=== PATIENT | male | born 1985 | race Caucasian/White ===

== ENCOUNTER 2021-12-20 15:09 | Emergency (ER) | payer OTHER ==
[2021-12-20] MEDS ORDERED: Cyclobenzaprine 10 MG Tab PO ONE (16:00)
[2021-12-20] MEDS ORDERED: HYDROmorphone 1 MG/ML Syringe IM ONE (16:00)
[2021-12-20] MEDS ORDERED: Ketorolac 60 MG/2 ML SDV IM ONE (16:00)
== END 2021-12-20 17:40 | disposition home or self-care (01) ==
LOC: JD.ED 15:09
DX: M54.42 Lumbago with sciatica, left side (principal); F17.210 Nicotine dependence, cigarettes, uncomplicated
CPT/HCPCS: 72100; 96372; 99283; A9270; J1170; J1885

== ENCOUNTER 2022-08-05 13:16 | Emergency (ER) | payer SELFPAY ==
[2022-08-05] MEDS ORDERED: Ondansetron 4 MG/2 ML SDV IVPUSH ONE (13:37)
[2022-08-05] MEDS ORDERED: Sodium Chloride 0.9% 10 ML Syringe FLUSH PRN (13:37)
[2022-08-05] MEDS ORDERED: HYDROmorphone 1 MG/ML Syringe IVPUSH ONE ×2 (13:38→17:01)
[2022-08-05] MEDS ORDERED: Ketorolac 30 MG/ML SDV IVPUSH ONE (13:38)
[2022-08-05] MEDS ORDERED: Sodium Chloride 0.9% 1,000 ML IV SCH (13:45)
[2022-08-05] MEDS ORDERED: HYDROmorphone 0.5 MG/0.5 ML Syringe IVPUSH ONE (14:08)
[2022-08-05 14:11] LABS: BASOPHILS ABSOLUTE AUTO 0.05 K/mm3 (0.01-0.08); BASOPHILS PERCENT AUTO 0.2 % (0.1-1.2); EOSINOPHILS ABSOLUTE AUTO 0.01 K/mm3 (0.04-0.54); EOSINOPHILS PERCENT AUTO 0 (0.8-7.0); HEMATOCRIT 56.8 % (40.1-51.0); HEMOGLOBIN 20.1 gm/dl (13.7-17.5); IMMATURE GRAN ABSOLUTE AUTO 0.13 K/mm3 (0.00-0.10); IMMATURE GRAN PERCENT AUTO 0.5 % (<=1.0); LYMPHOCYTES ABSOLUTE AUTO 0.92 K/mm3 (1.32-3.57); LYMPHOCYTES PERCENT AUTO 3.4 % (21.8-53.1); MEAN CORPUSCULAR HEMOGLOBIN 29.2 pg (25.7-32.2); MEAN CORPUSCULAR HGB CONC 35.4 g/dl (32.2-35.5); MEAN CORPUSCULAR VOLUME 82.6 fl (79.0-92.2); MEAN PLATELET VOLUME 10.5 fl (9.4-12.3); MONOCYTES ABSOLUTE AUTO 0.75 K/mm3 (0.30-0.82); MONOCYTES PERCENT AUTO 2.8 % (5.3-12.2); NEUTROPHILS ABSOLUTE AUTO 25.08 K/mm3 (1.78-5.38); NEUTROPHILS PERCENT AUTO 93.1 % (34.0-67.9); PLATELET COUNT,PLT 353 K/mm3 (163-337); RED BLOOD CELL COUNT 6.88 M/mm3 (4.63-6.08); WHITE BLOOD CELL COUNT,WBC 26.94 K/mm3 (4.23-9.07)
[2022-08-05 14:35] LABS: A/G RATIO 1.4 (1-2); ALANINE AMINOTRANSFERASE,ALT 59 U/L (16-63); ALBUMIN 5.1 g/dl (3.4-5.0); ALKALINE PHOSPHATASE 124 U/L (46-116); ASPARTATE AMNIOTRANSFERASE,AST 32 U/L (15-37); BILIRUBIN TOTAL 0.8 mg/dL (0.2-1.0); BLOOD UREA NITROGEN,BUN 31 mg/dL (7-18); BUN/CREATININE RATIO 17.2 (14-18); CALCIUM 10.6 mg/dL (8.5-10.1); CARBON DIOXIDE,CO2 19 mEq/L (21-32); CHLORIDE,CL 103 mEq/L (98-107); CREATININE 1.8 mg/dL (0.7-1.3); ESTIMATED GFR 50 mL/min (>60); GLUCOSE RANDOM 106 mg/dL (70-99); LIPASE 133 U/L (73-393); PROTEIN TOTAL,TP 8.8 g/dl (6.4-8.2); SODIUM,NA 137 mEq/L (136-145)
[2022-08-05 14:36] LABS: APPEARANCE,URINE CLEAR (Clear); BILIRUBIN,URINE 1+ (Negative); COLOR,URINE YELLOW (Yellow); GLUCOSE,URINE NEGATIVE (Negative); KETONES,URINE 3+ (Negative); LEUKOCYTE ESTERASE,URINE NEGATIVE (Negative); NITRITE,URINE NEGATIVE (Negative); OCCULT BLOOD,URINE 1+ (Negative); PH,URINE 5.5 (5.0-8.0); PROTEIN,URINE 3+ (Negative); UROBILINOGEN,URINE 0.2 (0.2-1.0)
[2022-08-05 14:48] LABS: BACTERIA,URINE FEW /hpf (FEW); FINE GRANULAR CASTS,URINE 0-5 /lpf (0-5); MUCUS,URINE MANY /hpf (FEW); RBC,URINE 0-5 /hpf (0-5); SQUAMOUS EPITHELIAL CELLS,UR 0-5 /hpf (0-5); WBC,URINE 0-5 /hpf (0-5)
[2022-08-05 14:54] LABS: SLIDE REVIEW ABNORMAL SMEAR
[2022-08-05 16:23] LABS: BASOPHILS ABSOLUTE AUTO 0.04 K/mm3 (0.01-0.08); BASOPHILS PERCENT AUTO 0.2 % (0.1-1.2); EOSINOPHILS PERCENT AUTO 0 (0.8-7.0); HEMOGLOBIN 19.7 gm/dl (13.7-17.5); IMMATURE GRAN PERCENT AUTO 0.4 % (<=1.0); LYMPHOCYTES ABSOLUTE AUTO 0.99 K/mm3 (1.32-3.57); LYMPHOCYTES PERCENT AUTO 3.9 % (21.8-53.1); MEAN CORPUSCULAR HGB CONC 34.6 g/dl (32.2-35.5); MEAN CORPUSCULAR VOLUME 83.9 fl (79.0-92.2); MEAN PLATELET VOLUME 10.3 fl (9.4-12.3); MONOCYTES ABSOLUTE AUTO 0.85 K/mm3 (0.30-0.82); MONOCYTES PERCENT AUTO 3.3 % (5.3-12.2); NEUTROPHILS ABSOLUTE AUTO 23.49 K/mm3 (1.78-5.38); NEUTROPHILS PERCENT AUTO 92.2 % (34.0-67.9); PLATELET COUNT,PLT 331 K/mm3 (163-337); RED BLOOD CELL COUNT 6.79 M/mm3 (4.63-6.08); WHITE BLOOD CELL COUNT,WBC 25.47 K/mm3 (4.23-9.07)
[2022-08-05 17:20] LABS: SLIDE REVIEW ABNORMAL SMEAR
== END 2022-08-05 19:07 | disposition home or self-care (01) ==
LOC: JD.ED 13:16
DX: R10.9 Unspecified abdominal pain (principal); E86.0 Dehydration; M54.50 Low back pain, unspecified; D72.829 Elevated white blood cell count, unspecified; I10 Essential (primary) hypertension; F17.210 Nicotine dependence, cigarettes, uncomplicated
CPT/HCPCS: 36415; 74176; 80053; 81001; 83690; 85025; 87040; 96361; 96374; 96375; 96376; 99284; J1170; J1885; J2405; J7030

== ENCOUNTER 2022-10-28 18:52 | Day surgery (SDC) | payer BC, MEDICAID ==
[2022-10-28] MEDS ORDERED: Aluminum Hydroxide/Magnesium Hydroxide/Simethicone Susp 30 ML Cup PO ONE (20:02)
[2022-10-28] MEDS ORDERED: HYDROmorphone 1 MG/ML Syringe IVPUSH ONE ×3 (20:02→21:11)
[2022-10-28] MEDS ORDERED: Metoclopramide 10 MG/2 ML SDV IVPUSH ONE (20:02)
[2022-10-28] MEDS ORDERED: Pantoprazole 40 MG Vial IVPUSH ONE (20:08)
[2022-10-28] MEDS ORDERED: Dextrose 5%-Lactated Ringers 1,000 ML IV SCH (20:15)
[2022-10-28 20:19] LABS: BASOPHILS ABSOLUTE AUTO 0.2 K/mm3 (0.0-0.2); EOSINOPHILS ABSOLUTE AUTO 0.1 K/mm3 (0.0-0.4); EOSINOPHILS PERCENT AUTO 0.8 % (0.0-6.0); IMMATURE GRAN ABSOLUTE AUTO 0.12 K/mm3 (0.00-0.05); IMMATURE GRAN PERCENT AUTO 0.7 % (0.0-0.4); LYMPHOCYTES ABSOLUTE AUTO 1.8 K/mm3 (1.0-4.8); LYMPHOCYTES PERCENT AUTO 10.4 % (24.0-44.0); MEAN CORPUSCULAR HEMOGLOBIN 30.7 pg (28.0-32.0); MEAN CORPUSCULAR HGB CONC 34.5 g/dl (32.0-36.0); MEAN CORPUSCULAR VOLUME 89.1 fl (83.0-99.0); MEAN PLATELET VOLUME 10.8 fl (9.4-12.4); MONOCYTES ABSOLUTE AUTO 1.1 K/mm3 (0.0-0.8); NEUTROPHILS ABSOLUTE AUTO 14.2 K/mm3 (1.8-7.7); NEUTROPHILS PERCENT AUTO 81.1 % (41.0-71.0); PLATELET COUNT,PLT 381 K/mm3 (150-400); RED BLOOD CELL COUNT 6.51 M/mm3 (4.52-5.90); WHITE BLOOD CELL COUNT,WBC 17.53 K/mm3 (3.9-11.3)
[2022-10-28 20:25] LABS: INR 1.14; PROTHROMBIN TIME 12.1 SECONDS (9.7-12.0)
[2022-10-28 20:27] LABS: PTT,PARTIAL THROMBOPLSTIN TIME 28.1 SECONDS (21.7-31.4)
[2022-10-28 20:29] LABS: A/G RATIO 1.3 (1-2); ALANINE AMINOTRANSFERASE,ALT 55 U/L (16-63); ALBUMIN 4.4 g/dl (3.4-5.0); ALKALINE PHOSPHATASE 71 U/L (46-116); ANION GAP 18.2 (5-15); ASPARTATE AMNIOTRANSFERASE,AST 38 U/L (15-37); BILIRUBIN TOTAL 1.1 mg/dL (0.2-1.0); BLOOD UREA NITROGEN,BUN 20 mg/dL (7-18); BUN/CREATININE RATIO 13.3 (14-18); C-REACTIVE PROTEIN <0.2 mg/dL (<1.0); CARBON DIOXIDE,CO2 21 mEq/L (21-32); CHLORIDE,CL 103 mEq/L (98-107); CREATININE 1.5 mg/dL (0.7-1.3); EST CRCL DRUG DOSING (CG) 78.42 mL/min; ESTIMATED GFR 62 mL/min (>60); GLUCOSE RANDOM 88 mg/dL (70-99); LIPASE 106 U/L (73-393); MAGNESIUM 1.8 mg/dL (1.8-2.4); POTASSIUM,K 5.2 mEq/L (3.5-5.1); PROTEIN TOTAL,TP 7.9 g/dl (6.4-8.2); SODIUM,NA 137 mEq/L (136-145)
[2022-10-28] MEDS ORDERED: HYDROmorphone 1 MG/ML Syringe ONE (21:09)
[2022-10-28] MEDS ORDERED: Iopamidol 612 MG/ML 100 ML Bottle IVPUSH ONE (21:31)
[2022-10-28] MEDS ORDERED: Ibuprofen 600 MG Tab PO ONE (23:50)
[2022-10-28] MEDS ORDERED: HYDROmorphone 0.5 MG/0.5 ML Syringe IVPUSH ONE (23:54)
[2022-10-28] MEDS ORDERED: LORazepam 2 MG/ML SDV IVPUSH ONE (23:55)
[2022-10-29] MEDS: Sodium Chloride 0.9% 1,000 ML IV SCH ×2 (01:00→08:25)
[2022-10-29] MEDS ORDERED: Polyethylene Glycol 3350 Powder 17 GM Packet PO ONE (03:00)
[2022-10-29] MEDS ORDERED: LORazepam 2 MG/ML SDV IVPUSH ONE (03:18)
[2022-10-29] MEDS ORDERED: HYDROmorphone 1 MG/ML Syringe IVPUSH ONE (03:18)
[2022-10-29] MEDS ORDERED: Polyethylene Glycol 3350 Powder 17 GM Packet ONE (03:18)
[2022-10-29] MEDS ORDERED: Metoclopramide 10 MG/2 ML SDV IVPUSH ONE (03:19)
[2022-10-29] MEDS ORDERED: Dextrose 5%-Lactated Ringers 1,000 ML IV SCH (03:30)
[2022-10-29 06:11] LABS: BASOPHILS ABSOLUTE AUTO 0.1 K/mm3 (0.0-0.2); BASOPHILS PERCENT AUTO 0.9 % (0.0-1.0); EOSINOPHILS ABSOLUTE AUTO 0.2 K/mm3 (0.0-0.4); EOSINOPHILS PERCENT AUTO 1.9 % (0.0-6.0); HEMATOCRIT 54.1 % (42.0-52.0); IMMATURE GRAN ABSOLUTE AUTO 0.08 K/mm3 (0.00-0.05); IMMATURE GRAN PERCENT AUTO 0.6 % (0.0-0.4); LYMPHOCYTES ABSOLUTE AUTO 2.2 K/mm3 (1.0-4.8); LYMPHOCYTES PERCENT AUTO 17.2 % (24.0-44.0); MEAN CORPUSCULAR HEMOGLOBIN 30.3 pg (28.0-32.0); MEAN CORPUSCULAR HGB CONC 33.3 g/dl (32.0-36.0); MEAN CORPUSCULAR VOLUME 90.9 fl (83.0-99.0); MEAN PLATELET VOLUME 9.8 fl (9.4-12.4); NEUTROPHILS ABSOLUTE AUTO 9.2 K/mm3 (1.8-7.7); NEUTROPHILS PERCENT AUTO 71.4 % (41.0-71.0); PLATELET COUNT,PLT 298 K/mm3 (150-400); RED BLOOD CELL COUNT 5.95 M/mm3 (4.52-5.90); WHITE BLOOD CELL COUNT,WBC 12.92 K/mm3 (3.9-11.3)
[2022-10-29 06:32] LABS: A/G RATIO 1.2 (1-2); ALANINE AMINOTRANSFERASE,ALT 59 U/L (16-63); ALBUMIN 3.6 g/dl (3.4-5.0); ALKALINE PHOSPHATASE 59 U/L (46-116); ANION GAP 10.3 (5-15); ASPARTATE AMNIOTRANSFERASE,AST 38 U/L (15-37); BILIRUBIN TOTAL 1.1 mg/dL (0.2-1.0); BLOOD UREA NITROGEN,BUN 16 mg/dL (7-18); BUN/CREATININE RATIO 10.7 (14-18); C-REACTIVE PROTEIN <0.2 mg/dL (<1.0); CARBON DIOXIDE,CO2 28 mEq/L (21-32); CHLORIDE,CL 101 mEq/L (98-107); CREATININE 1.5 mg/dL (0.7-1.3); EST CRCL DRUG DOSING (CG) 78.42 mL/min; ESTIMATED GFR 62 mL/min (>60); GLUCOSE RANDOM 73 mg/dL (70-99); LIPASE 324 U/L (73-393); POTASSIUM,K 4.3 mEq/L (3.5-5.1); PROTEIN TOTAL,TP 6.6 g/dl (6.4-8.2); SODIUM,NA 135 mEq/L (136-145)
[2022-10-29 07:05] LABS: CALCIUM 8.7 mg/dL (8.5-10.1)
[2022-10-29] MEDS ORDERED: HYDROmorphone 0.5 MG/0.5 ML Syringe IVPUSH ONE ×3 (07:28→12:29)
[2022-10-29] MEDS ORDERED: Benzocaine 20% Topical Spray UD ONE (13:09)
[2022-10-29] MEDS ORDERED: Propofol 200 MG/20 ML SDV ONE ×2 (13:09→13:45)
[2022-10-29] MEDS ORDERED: Lidocaine 2% 100 MG/5 ML Syringe ONE (13:09)
[2022-10-29] MEDS ORDERED: Midazolam 1 MG/ML 2 ML SDV ONE (13:12)
[2022-10-29] MEDS ORDERED: fentaNYL 100 MCG/2 ML SDV ONE (13:13)
[2022-10-29] MEDS ORDERED: Labetalol 100 MG/20 ML MDV ONE (13:43)
== END 2022-10-29 | disposition home or self-care (01) ==
LOC: JD.ED 18:52 → JD.SDS 10-29 10:50 → JD.OB 10-29 11:06 → JD.SDS 10-29 11:06
PROVIDERS: ATTEND Specialist
DX: D13.1 Benign neoplasm of stomach (principal); I10 Essential (primary) hypertension; K21.9 Gastro-esophageal reflux disease without esophagitis; F32.A Depression, unspecified; Z79.899 Other long term (current) drug therapy
CPT/HCPCS: 36415; 43239; 71045; 74177; 80053; 82009; 83605; 83690; 83735; 85025; 85610; 85730; 86140; 96361; 96374; 96375; 96376; 99285; A9270; C9113; J1170; J2060; J2250; J2704; J2765; J3010; J3490; J7030; J7121; Q9967; 99284

== ENCOUNTER 2023-03-24 10:27 | Emergency (ER) | payer BC ==
[2023-03-24] MEDS ORDERED: Sodium Chloride 0.9% 10 ML Syringe FLUSH PRN (10:32)
[2023-03-24] MEDS ORDERED: Ketorolac 30 MG/ML SDV IVPUSH ONE ×2 (10:33→17:42)
[2023-03-24] MEDS ORDERED: Sodium Chloride 0.9% 1,000 ML IV SCH (10:45)
[2023-03-24 10:56] LABS: BASOPHILS ABSOLUTE AUTO 0.1 K/mm3 (0.0-0.2); BASOPHILS PERCENT AUTO 0.3 % (0.0-1.0); EOSINOPHILS ABSOLUTE AUTO 0.4 K/mm3 (0.0-0.4); EOSINOPHILS PERCENT AUTO 1.7 % (0.0-6.0); HEMATOCRIT 52.7 % (42.0-52.0); IMMATURE GRAN ABSOLUTE AUTO 0.15 K/mm3 (0.00-0.05); IMMATURE GRAN PERCENT AUTO 0.7 % (0.0-0.4); LYMPHOCYTES ABSOLUTE AUTO 1.4 K/mm3 (1.0-4.8); LYMPHOCYTES PERCENT AUTO 6.3 % (24.0-44.0); MEAN CORPUSCULAR HEMOGLOBIN 28.8 pg (28.0-32.0); MEAN CORPUSCULAR HGB CONC 32.8 g/dl (32.0-36.0); MEAN CORPUSCULAR VOLUME 87.7 fl (83.0-99.0); MEAN PLATELET VOLUME 9.8 fl (9.4-12.4); MONOCYTES ABSOLUTE AUTO 1.3 K/mm3 (0.0-0.8); NEUTROPHILS ABSOLUTE AUTO 18.5 K/mm3 (1.8-7.7); PLATELET COUNT,PLT 390 K/mm3 (150-400); RED BLOOD CELL COUNT 6.01 M/mm3 (4.52-5.90); WHITE BLOOD CELL COUNT,WBC 21.75 K/mm3 (3.9-11.3)
[2023-03-24 11:00] LABS: HEMOGLOBIN 17.3 gm/dl (14.0-18.0)
[2023-03-24 11:16] LABS: SLIDE REVIEW ABNORMAL SMEAR
[2023-03-24 11:25] LABS: A/G RATIO 1.1 (1-2); ALBUMIN 4.2 g/dl (3.4-5.0); ANION GAP 19.6 (5-15); BILIRUBIN TOTAL 1.3 mg/dL (0.2-1.0); BUN/CREATININE RATIO 8.4 (14-18); CALCIUM 9.9 mg/dL (8.5-10.1); CREATININE 1.9 mg/dL (0.7-1.3); EST CRCL DRUG DOSING (CG) 61.33 mL/min; POTASSIUM,K 4.6 mEq/L (3.5-5.1); PROTEIN TOTAL,TP 7.9 g/dl (6.4-8.2)
[2023-03-24] MEDS ORDERED: fentaNYL 100 MCG/2 ML SDV IVPUSH ONE (12:37)
[2023-03-24 12:46] LABS: APPEARANCE,URINE SLT CLOUDY (Clear); BILIRUBIN,URINE 2+ (Negative); COLOR,URINE DARK YELLOW (Yellow); GLUCOSE,URINE NEGATIVE (Negative); KETONES,URINE 2+ (Negative); LEUKOCYTE ESTERASE,URINE NEGATIVE (Negative); NITRITE,URINE NEGATIVE (Negative); OCCULT BLOOD,URINE 2+ (Negative); PH,URINE 5.5 (5.0-8.0); PROTEIN,URINE 3+ (Negative); UROBILINOGEN,URINE 0.2 (0.2-1.0)
[2023-03-24 12:53] LABS: EPITHELIAL CELLS,URINE 0-5 /hpf (0-5)
[2023-03-24 12:54] LABS: BACTERIA,URINE MODERATE /hpf (FEW); MUCUS,URINE MANY /hpf (FEW)
[2023-03-24] MEDS ORDERED: Sodium Chloride 0.9% 1,000 ML IV ONE (14:52)
[2023-03-24] MEDS ORDERED: HYDROmorphone 0.5 MG/0.5 ML Syringe IVPUSH ONE ×2 (14:57→18:53)
[2023-03-24 15:41] LABS: BASOPHILS ABSOLUTE AUTO 0.1 K/mm3 (0.0-0.2); BASOPHILS PERCENT AUTO 0.3 % (0.0-1.0); EOSINOPHILS ABSOLUTE AUTO 0.3 K/mm3 (0.0-0.4); EOSINOPHILS PERCENT AUTO 1.5 % (0.0-6.0); HEMATOCRIT 49.1 % (42.0-52.0); HEMOGLOBIN 16.1 gm/dl (14.0-18.0); IMMATURE GRAN ABSOLUTE AUTO 0.15 K/mm3 (0.00-0.05); IMMATURE GRAN PERCENT AUTO 0.7 % (0.0-0.4); LYMPHOCYTES ABSOLUTE AUTO 1.4 K/mm3 (1.0-4.8); LYMPHOCYTES PERCENT AUTO 6.5 % (24.0-44.0); MEAN CORPUSCULAR HEMOGLOBIN 29.2 pg (28.0-32.0); MEAN CORPUSCULAR HGB CONC 32.8 g/dl (32.0-36.0); MEAN CORPUSCULAR VOLUME 88.9 fl (83.0-99.0); MEAN PLATELET VOLUME 10.1 fl (9.4-12.4); MONOCYTES ABSOLUTE AUTO 1.4 K/mm3 (0.0-0.8); MONOCYTES PERCENT AUTO 6.1 % (0.0-8.0); NEUTROPHILS ABSOLUTE AUTO 18.9 K/mm3 (1.8-7.7); NEUTROPHILS PERCENT AUTO 84.9 % (41.0-71.0); PLATELET COUNT,PLT 379 K/mm3 (150-400); RED BLOOD CELL COUNT 5.52 M/mm3 (4.52-5.90)
[2023-03-24] MEDS ORDERED: Haloperidol Lactate 5 MG/ML SDV IVPUSH ONE (16:23)
[2023-03-24 16:52] LABS: BARBITURATE SCREEN,URINE NEGATIVE (CUTOFF=200); BENZODIAZEPINES SCREEN,URINE NEGATIVE (CUTOFF=150); BUPRENORPHINE SCREEN,URINE NEGATIVE (CUTOFF=10); METHADONE SCREEN, URINE NEGATIVE (CUT0FF=200); METHAMPHETAMINES SCREEN, URINE NEGATIVE (CUTOFF=500); OXYCODONE SCREEN,URINE NEGATIVE (CUT0FF=100); THC SCREEN,URINE 20 NG/ML PRESUMPTIVE POSITIVE (CUTOFF=50)
[2023-03-24 17:00] LABS: AMPHETAMINES SCREEN, URINE NEGATIVE (CUTOFF=500)
[2023-03-24] MEDS ORDERED: Iopamidol 612 MG/ML 100 ML Bottle IVPUSH ONE (17:25)
[2023-03-24] MEDS ORDERED: Sodium Chloride 0.9% 10 ML Syringe FLUSH ONE (17:25)
[2023-03-24 18:48] LABS: LACTIC ACID 1.1 mmol/L (0.4-2.0)
[2023-03-24] MEDS ORDERED: Ondansetron 4 MG/2 ML SDV IVPUSH ONE (18:53)
== END 2023-03-24 19:30 | disposition home or self-care (01) ==
LOC: JD.ED 10:27
DX: R10.13 Epigastric pain (principal); R11.2 Nausea with vomiting, unspecified; I10 Essential (primary) hypertension; Z79.899 Other long term (current) drug therapy
CPT/HCPCS: 36415; 74176; 74177; 80053; 80306; 81001; 83605; 83690; 85025; 86140; 87040; 87045; 87046; 87493; 87899; 96361; 96374; 96375; 96376; 99285; J1170; J1630; J1885; J2405; J3010; J3490; J7030; Q9967; 99284

== ENCOUNTER 2023-03-27 19:37 | Inpatient (IN) | payer BC ==
[2023-03-27] MEDS ORDERED: Ketorolac 15 MG/ML SDV IVPUSH ONE (20:01)
[2023-03-27] MEDS ORDERED: Acetaminophen 325 MG Tab PO ONE (20:01)
[2023-03-27] MEDS ORDERED: Sodium Chloride 0.9% 1,000 ML IV ONE ×2 (20:02→21:37)
[2023-03-27 20:15] LABS: BASOPHILS ABSOLUTE AUTO 0.2 K/mm3 (0.0-0.2); BASOPHILS PERCENT AUTO 0.6 % (0.0-1.0); EOSINOPHILS ABSOLUTE AUTO 0.1 K/mm3 (0.0-0.4); EOSINOPHILS PERCENT AUTO 0.3 % (0.0-6.0); HEMATOCRIT 52.8 % (42.0-52.0); IMMATURE GRAN ABSOLUTE AUTO 0.55 K/mm3 (0.00-0.05); IMMATURE GRAN PERCENT AUTO 1.5 % (0.0-0.4); LYMPHOCYTES ABSOLUTE AUTO 1.9 K/mm3 (1.0-4.8); MEAN CORPUSCULAR HEMOGLOBIN 29.9 pg (28.0-32.0); MEAN CORPUSCULAR HGB CONC 34.5 g/dl (32.0-36.0); MEAN CORPUSCULAR VOLUME 86.7 fl (83.0-99.0); MEAN PLATELET VOLUME 11.1 fl (9.4-12.4); MONOCYTES PERCENT AUTO 5.2 % (0.0-8.0); NEUTROPHILS PERCENT AUTO 87.4 % (41.0-71.0); PLATELET COUNT,PLT 397 K/mm3 (150-400); RED BLOOD CELL COUNT 6.09 M/mm3 (4.52-5.90); WHITE BLOOD CELL COUNT,WBC 37.68 K/mm3 (3.9-11.3)
[2023-03-27 20:28] LABS: HEMOGLOBIN 18.2 gm/dl (14.0-18.0)
[2023-03-27 21:04] LABS: A/G RATIO 1.2 (1-2); ALANINE AMINOTRANSFERASE,ALT 68 U/L (16-63); ALBUMIN 4.4 g/dl (3.4-5.0); ALKALINE PHOSPHATASE 78 U/L (46-116); ANION GAP 22.4 (5-15); ASPARTATE AMNIOTRANSFERASE,AST 38 U/L (15-37); BILIRUBIN TOTAL 0.8 mg/dL (0.2-1.0); BLOOD UREA NITROGEN,BUN 22 mg/dL (7-18); BUN/CREATININE RATIO 11.6 (14-18); CALCIUM 11.3 mg/dL (8.5-10.1); CARBON DIOXIDE,CO2 17 mEq/L (21-32); CHLORIDE,CL 101 mEq/L (98-107); CREATININE 1.9 mg/dL (0.7-1.3); ESTIMATED GFR 47 mL/min (>60); GLUCOSE RANDOM 123 mg/dL (70-99); POTASSIUM,K 5.4 mEq/L (3.5-5.1); PROTEIN TOTAL,TP 8.2 g/dl (6.4-8.2); SODIUM,NA 135 mEq/L (136-145)
[2023-03-27 21:07] LABS: SLIDE REVIEW ABNORMAL SMEAR
[2023-03-27] MEDS ORDERED: Morphine 4 MG/ML Syringe IVPUSH ONE (21:31)
[2023-03-27] MEDS ORDERED: Lactated Ringers 1,000 ML IV ONE ×2 (21:33→21:34)
[2023-03-27] MEDS ORDERED: cefTRIAXone 2 GM in Sodium Chloride 0.9% 100 ML IV ONE (21:36)
[2023-03-27] MEDS ORDERED: Lactated Ringers 1,000 ML ONE (21:43)
[2023-03-27 22:20] LABS: CHOLESTEROL HDL 13 mg/dL (40-59); CHOLESTEROL LDL DIRECT 184 mg/dL (<100); CHOLESTEROL TOTAL 240 mg/dL (<200); LIPASE 38 U/L (16-77); TRIGLYCERIDES 271 mg/dL (<150)
[2023-03-27] MEDS ORDERED: HYDROmorphone 1 MG/ML Syringe IVPUSH ONE ×2 (22:20→23:49)
[2023-03-27] MEDS ORDERED: Famotidine 20 MG/2 ML SDV IVPUSH ONE (22:20)
[2023-03-27] MEDS ORDERED: Pantoprazole 40 MG Vial IVPUSH ONE (22:20)
[2023-03-27 22:25] LABS: LACTIC ACID 1.1 mmol/L (0.4-2.0)
[2023-03-27] MEDS ORDERED: Dicyclomine 10 MG Cap PO ONE (23:49)
[2023-03-28] MEDS ORDERED: Sodium Chloride 0.9% 1,000 ML IV ONE (00:01)
[2023-03-28] MEDS ORDERED: Haloperidol Lactate 5 MG/ML SDV IVPUSH ONE (01:20)
[2023-03-28 01:22] LABS: APPEARANCE,URINE CLEAR (Clear); BILIRUBIN,URINE 3+ (Negative); COLOR,URINE DARK YELLOW (Yellow); GLUCOSE,URINE NEGATIVE (Negative); KETONES,URINE TRACE (Negative); LEUKOCYTE ESTERASE,URINE NEGATIVE (Negative); NITRITE,URINE POSITIVE (Negative); OCCULT BLOOD,URINE 2+ (Negative); PROTEIN,URINE 3+ (Negative)
[2023-03-28 01:51] LABS: EPITHELIAL CELLS,URINE 0-5 /hpf (0-5); RBC,URINE 0-5 /hpf (0-5); WBC,URINE 0-5 /hpf (0-5)
[2023-03-28 01:52] LABS: AMORPHOUS SEDIMENT,URINE FEW /hpf (NOT SEEN); BACTERIA,URINE MODERATE /hpf (FEW); HYALINE CASTS,URINE 0-5 /lpf (0-5); MUCUS,URINE FEW /hpf (FEW)
[2023-03-28] MEDS ORDERED: HYDROmorphone 1 MG/ML Syringe IVPUSH ONE ×4 (02:48→20:02)
[2023-03-28 03:22] LABS: ANION GAP 20.5 (5-15); BUN/CREATININE RATIO 16.3 (14-18); CALCIUM 9.6 mg/dL (8.5-10.1); CREATININE 1.6 mg/dL (0.7-1.3); EST CRCL DRUG DOSING (CG) 72.83 mL/min
[2023-03-28] MEDS ORDERED: Sodium Chloride 0.9% 1,000 ML IV SCH (03:30)
[2023-03-28 03:32] LABS: POTASSIUM,K 6.5 mEq/L (3.5-5.1)
[2023-03-28] MEDS ORDERED: Insulin Regular, Human 100 Units/ML 3 ML Vial IV ONE (03:34)
[2023-03-28] MEDS ORDERED: 50% Dextrose in Water 50 ML Syringe IVPUSH ONE (03:36)
[2023-03-28] MEDS ORDERED: Albuterol 0.083% 2.5 MG/3 ML Neb Soln NEB ONE (03:37)
[2023-03-28] MEDS ORDERED: Calcium Gluconate 10% 1 GM/10 ML SDV IVPUSH ONE (03:40)
[2023-03-28] MEDS: Lactated Ringers 1,000 ML IV SCH ×2 (03:40→12:14)
[2023-03-28 04:04] LABS: BASE EXCESS VENOUS -7.9 (-4.0-2.0); BICARBONATE,VENOUS 16.9 meq/L (22-26); O2 SATURATION VENOUS 98.2; PH,VENOUS 7.32 (7.30-7.40)
[2023-03-28] MEDS: Meropenem 1 GM in Sodium Chloride 0.9% 100 ML IV SCH ×3 (04:13→19:52)
[2023-03-28] MEDS: HYDROmorphone 1 MG/ML Syringe IVPUSH PRN ×3 (04:48→08:54)
[2023-03-28] MEDS ORDERED: Ondansetron 4 MG/2 ML SDV IVPUSH ONE (06:36)
[2023-03-28 06:55] LABS: ANION GAP 16.3 (5-15); BUN/CREATININE RATIO 15.6 (14-18); CALCIUM 9.6 mg/dL (8.5-10.1); CREATININE 1.6 mg/dL (0.7-1.3); EST CRCL DRUG DOSING (CG) 72.83 mL/min; POTASSIUM,K 5.3 mEq/L (3.5-5.1)
[2023-03-28] MEDS ORDERED: Acetaminophen 325 MG Tab PO PRN (09:01)
[2023-03-28] MEDS ORDERED: Acetaminophen/HYDROcodone 325-10 MG Tab PO PRN (09:01)
[2023-03-28] MEDS ORDERED: Morphine 2 MG/ML SYRINGE IVPUSH PRN ×2 (09:01→10:09)
[2023-03-28] MEDS ORDERED: Labetalol 100 MG/20 ML MDV IVPUSH PRN ×2 (09:06→11:44)
[2023-03-28] MEDS ORDERED: Morphine 10 MG/ML SDV IVPUSH ONE (12:00)
[2023-03-28] MEDS ORDERED: methylPREDNISolone Sodium Succinate 125 MG/2 ML SDV IVPUSH SCH (12:15)
[2023-03-28] MEDS ORDERED: Losartan 100 MG Tab PO ONE (12:30)
[2023-03-28] MEDS ORDERED: methylPREDNISolone Sodium Succinate 125 MG/2 ML SDV IVPUSH ONE (13:00)
[2023-03-28 13:47] LABS: HEMOGLOBIN A1C 5.1 %
[2023-03-28] MEDS: Morphine 2 MG/ML SYRINGE IVPUSH PRN ×2 (14:08→15:12)
[2023-03-28] MEDS: Morphine 4 MG/ML Syringe IVPUSH PRN ×2 (16:13→19:52)
[2023-03-28 16:18] LABS: HEMATOCRIT 47.6 % (42.0-52.0)
[2023-03-28] MEDS ORDERED: Acetaminophen 325 MG Tab PO SCH (18:30)
[2023-03-28] MEDS ORDERED: LORazepam 2 MG/ML SDV IVPUSH ONE (18:31)
[2023-03-28 18:32] LABS: BASOPHILS ABSOLUTE AUTO 0.1 K/mm3 (0.0-0.2); BASOPHILS PERCENT AUTO 0.2 % (0.0-1.0); EOSINOPHILS PERCENT AUTO 0.1 % (0.0-6.0); HEMATOCRIT 48.8 % (42.0-52.0); IMMATURE GRAN ABSOLUTE AUTO 0.22 K/mm3 (0.00-0.05); IMMATURE GRAN PERCENT AUTO 0.8 % (0.0-0.4); LYMPHOCYTES ABSOLUTE AUTO 0.6 K/mm3 (1.0-4.8); LYMPHOCYTES PERCENT AUTO 2.2 % (24.0-44.0); MEAN CORPUSCULAR HEMOGLOBIN 29.3 pg (28.0-32.0); MEAN CORPUSCULAR HGB CONC 32.8 g/dl (32.0-36.0); MEAN CORPUSCULAR VOLUME 89.2 fl (83.0-99.0); MEAN PLATELET VOLUME 9.5 fl (9.4-12.4); MONOCYTES ABSOLUTE AUTO 0.2 K/mm3 (0.0-0.8); MONOCYTES PERCENT AUTO 0.7 % (0.0-8.0); NEUTROPHILS ABSOLUTE AUTO 26.8 K/mm3 (1.8-7.7); PLATELET COUNT,PLT 386 K/mm3 (150-400); RED BLOOD CELL COUNT 5.47 M/mm3 (4.52-5.90); WHITE BLOOD CELL COUNT,WBC 27.87 K/mm3 (3.9-11.3)
[2023-03-28 19:05] LABS: LACTIC ACID 3.3 mmol/L (0.4-2.0)
[2023-03-28] MEDS ORDERED: Rosuvastatin 10 MG Tab PO SCH (21:00)
[2023-03-29] MEDS ORDERED: Enoxaparin 40 MG/0.4 ML Syringe SUBCUT SCH (09:00)
[2023-03-29] MEDS ORDERED: methylPREDNISolone Sodium Succinate 40 MG/1 ML SDV IVPUSH SCH (09:00)
[2023-03-29] MEDS ORDERED: QUEtiapine 100 MG Tab PO SCH (09:00)
[2023-03-29] MEDS ORDERED: Losartan 100 MG Tab PO SCH (09:00)
[2023-03-29] MEDS ORDERED: Tamsulosin 0.4 MG Cap.ER PO SCH (10:00)
== END 2023-03-28 20:45 | DRG 720 ==
LOC: JD.ED 19:37 → JD.MS 03-28 03:57
PROVIDERS: ADMIT Student in an Organized Health Care Education/Training Program; ATTEND Student in an Organized Health Care Education/Training Program
DX: A41.9 Sepsis, unspecified organism (principal); N17.9 Acute kidney failure, unspecified; M62.82 Rhabdomyolysis; N10 Acute pyelonephritis; I10 Essential (primary) hypertension; I16.0 Hypertensive urgency; E87.20 Acidosis, unspecified; K21.9 Gastro-esophageal reflux disease without esophagitis; E78.5 Hyperlipidemia, unspecified; K52.9 Noninfective gastroenteritis and colitis, unspecified; Z96.643 Presence of artificial hip joint, bilateral; F43.10 Post-traumatic stress disorder, unspecified; E87.5 Hyperkalemia; Z79.899 Other long term (current) drug therapy; Z90.49 Acquired absence of other specified parts of digestive tract; Z98.890 Other specified postprocedural states
CPT/HCPCS: 36415; 71045; 71045-26; 74176; 74176-26; 80048; 80053; 80061; 81001; 82550; 82803; 83036; 83605; 83690; 84100; 84484; 85014; 85018; 85025; 85652; 86140; 87040; 87086; 93005; 93010; 94640; 99284; A9270-GY; C9113; J0612; J0696; J1170; J1630; J1815-GY; J1885; J1921; J2060; J2185; J2270; J2405; J2930; J3490; J7030; J7120; J7620-GY